=== PATIENT | male | born 1935 ===

== ENCOUNTER 2017-01-12 07:54 | Day surgery (SDC) | payer MEDICARE, OTHER ==
[2017-01-05 13:46] VITALS: BMI 33.4
[2017-01-12] MEDS ORDERED: Sodium Chloride 0.9% 1,000 ML IV SCH (09:15)
[2017-01-12] MEDS ORDERED: Propofol 10 mg/ml Inj (20 ML) ONE ×2 (09:23→09:44)
[2017-01-12 11:02] VITALS: BP 123/72; PULSE 61; RESP 16; TEMP 97.6; O2SAT 98
== END 2017-01-12 11:27 | disposition home or self-care (01) ==
LOC: ENDO 07:54
PROVIDERS: ATTEND Specialist
DX: Z12.11 Encounter for screening for malignant neoplasm of colon (principal); K57.30 Diverticulosis of large intestine without perforation or abscess without bleeding; K64.8 Other hemorrhoids; I25.10 Atherosclerotic heart disease of native coronary artery without angina pectoris; Z85.46 Personal history of malignant neoplasm of prostate
CPT/HCPCS: 45378; J2704; J7040

== ENCOUNTER 2017-05-11 08:58 | Day surgery (SDC) | payer MEDICARE, OTHER ==
[2017-05-04 10:53] VITALS: BMI 32.5
[2017-05-11] MEDS ORDERED: Propofol 10 mg/ml Inj (20 ML) ONE (09:56)
[2017-05-11] MEDS ORDERED: Etomidate 20 mg/10ml Inj IV ONE (09:56)
[2017-05-11] MEDS ORDERED: Sodium Chloride 0.9% 1,000 ML IV SCH (10:30)
--- NOTE | 2017-05-11 12:31 | CARD ---
APPROVED REPORT EKG Measurement Heart [id number] <Conclusion> Sinus bradycardia Nonspecific T wave abnormality Abnormal ECG
[2017-05-11 13:04] VITALS: O2SAT 98
[2017-05-11 13:20] VITALS: BP 155/66; PULSE 56; RESP 18; TEMP 97.9
== END 2017-05-11 13:56 | disposition home or self-care (01) ==
LOC: ENDO 08:58
PROVIDERS: ATTEND Specialist
DX: K29.50 Unspecified chronic gastritis without bleeding (principal); K44.9 Diaphragmatic hernia without obstruction or gangrene; K31.9 Disease of stomach and duodenum, unspecified

== ENCOUNTER 2017-05-30 07:36 | Day surgery (SDC) | payer MEDICARE, OTHER ==
[2017-05-04 10:53] VITALS: BMI 32.5
[2017-05-30] MEDS ORDERED: Bupivacaine 0.5% Inj(30mL) ONE (09:21)
[2017-05-30] MEDS ORDERED: Propofol 10 mg/ml Inj (20 ML) ONE (09:41)
[2017-05-30] MEDS ORDERED: Midazolam 2 MG/2 ML VIAL ONE ×2 (09:42→09:59)
[2017-05-30] MEDS ORDERED: Lidocaine 1% Inj (20ml) ONE (09:53)
[2017-05-30] MEDS ORDERED: Lactated Ringer's 1,000 ML IV SCH (11:05)
[2017-05-30] MEDS ORDERED: HYDROmorphone 0.5 mg/0.5 ml ISec IVP PRN (11:05)
--- NOTE | 2017-05-30 11:16 | PCM.SURG1 ---
Surgeon's Initial Post Op Note - Surgeon's Notes Surgeon: Jasvir Field Sales Manager: Meek Chavez Pre-Operative Diagnosis: left enlarged inguinal lymph node Operative Findings: enlarged left inguinal lymph node Post-Operative Diagnosis: same Operation Performed: open left inguinal lymph node biospy Specimen/Specimens Removed: left inguinal lymph node Estimated Blood Loss: EBL {In ML}: 15 Post-Op Condition: Good Date of Surgery/Procedure: 05/30/17 Time of Surgery/Procedure: 10:15
[2017-05-30 11:54] VITALS: RESP 18; TEMP 97.7
[2017-05-30 12:28] VITALS: O2SAT 98
[2017-05-30 14:45] VITALS: BP 131/70; PULSE 51
--- NOTE | 2017-05-31 08:08 | OP ---
PROCEDURE DATE: 05/30/2017 The patient seen in the office on the table. The patient was noted to have diffuse adenopathy mostly involving left lower quadrant and groin. The patient is status post prostate resection with radiation. DESCRIPTION OF PROCEDURE: In the operating room, the patient was identified by name, name of the procedure, laterality, my trvea, the consent, name, number, wrist band, and his date. After the successful time-out, the patient was noted to have a large mass in the left inguinal area. Ultrasound was done which mapped it out very nicely. The hardest one was identified and an incision was made over it using IV sedation and Marcaine-Xylocaine mix skin and subcutaneous tissues below the initial fascia. The mass was then dissected circumferentially was 3-4 cm in length and 2-3 cm in width. This was dissected down to another mass. It was continuous series of lymph nodes. This was then amputated, removing a very large lymph node. Hemostasis was achieved with the cautery and pressure. I personally took this to the pathologist who eventually did a touch prep and a frozen section showing spindle cells. "No obvious lymphoma or cancer." The other half of the specimen was sent for cultures, aerobic and anaerobic, fungus and TB. The wound was closed with multiple layers of Vicryl followed by subcuticular PDS and Dermabond. The patient was taken to the recovery room in good condition after sponge and needle count was claimed correct. Santana Tay MD
[2017-06-02 12:37] LABS: NON-RESPIRATORY SOURCE LT INGUINAL LYMPHNOD
== END 2017-05-30 14:36 | disposition home or self-care (01) ==
LOC: SDS 07:36
PROVIDERS: ATTEND Surgery
DX: R59.0 Localized enlarged lymph nodes (principal); I10 Essential (primary) hypertension
CPT/HCPCS: 38500; 87015; 87070; 87075; 87101; 87116; 87181; 87206; 87556; 88305; J0690; J1170; J1885; J2250; J2704; J3010; J7120 ×2

== ENCOUNTER 2017-08-11 07:02 | Inpatient (IN) | payer MEDICARE, OTHER ==
[2017-05-04 10:53] VITALS: BMI 32.5
[2017-08-11] MEDS ORDERED: Bupivacaine 0.5% Inj(30mL) ONE (10:01)
[2017-08-11] MEDS ORDERED: Succinylcholine 200 mg/10 ml Inj IV ONE (10:15)
[2017-08-11] MEDS ORDERED: Midazolam 2 MG/2 ML VIAL ONE (10:15)
[2017-08-11] MEDS ORDERED: Rocuronium 10 mg/ml (5 ml) ONE (10:15)
[2017-08-11] MEDS ORDERED: Etomidate 20 mg/10ml Inj IV ONE (10:15)
[2017-08-11] MEDS ORDERED: Phenylephrine 10 mg/ml Inj ONE (10:50)
[2017-08-11] MEDS ORDERED: Neostigmine Methylsulfate 3mg/3ml Syringe IV ONE (12:46)
[2017-08-11] MEDS ORDERED: Morphine 4 mg/ml ISec IVP PRN (13:08)
[2017-08-11] MEDS ORDERED: Lactated Ringer's 1,000 ML IV SCH (13:15)
[2017-08-11] MEDS ORDERED: Oxycodone/Acetaminophen 5/325 mg Tab PO PRN ×2 (13:20→13:25)
--- NOTE | 2017-08-11 13:52 | PCM.SURG1 ---
Surgeon's Initial Post Op Note - Surgeon's Notes Surgeon: Dr. Tay Dolphin Trainer: Dr. Alas PGY-3, Dr. Zamarripa PGY-2, Judd Pineda MS4 Type of Anesthesia: General Endo Anesthesia Administered By: Dr. Hopkins Pre-Operative Diagnosis: Left groin mass Operative Findings: See operative report Post-Operative Diagnosis: same Operation Performed: Radical Dissection of Left groin mass with excision of Adherent Spermatic cord Specimen/Specimens Removed: left groin mass, spermatic cord Estimated Blood Loss: EBL {In ML}: 350 Blood Products Given: N/A Drains Used: Jcarlos (x 2) Post-Op Condition: Good Date of Surgery/Procedure: 08/11/17 Time of Surgery/Procedure: 13:53
[2017-08-11] MEDS: ceFAZolin 1 gm in NS 1 GM/100 ML BAG IVPB SCH ×2 (16:02→21:44)
[2017-08-11] MEDS: Lactated Ringer's 1,000 ML IV SCH (16:03)
[2017-08-11] MEDS ORDERED: Influenza Vaccine 60 mcg/0.5 mL SYR (4YR UP) IM ONE (16:13)
[2017-08-11] MEDS ORDERED: Pneumococcal 23-Valent Vaccine IM ONE (16:13)
[2017-08-12] MEDS: Lactated Ringer's 1,000 ML IV SCH ×2 (05:59→16:51)
[2017-08-12] MEDS: ceFAZolin 1 gm in NS 1 GM/100 ML BAG IVPB SCH ×3 (06:00→21:14)
[2017-08-12 06:59] LABS: BASO # 0.01 K/mm3 (0.0-2.0); BASO % 0.1 % (0.0-3.0); EOS % 0.4 % (1.5-5.0); GRAN # 5.8 (1.4-6.5); GRAN % 72.4 % (50.0-68.0); HEMATOCRIT 31.3 % (42.0-52.0); LYMPH % 12.8 % (22.0-35.0); MEAN CELL VOLUME 70.7 fl (80.0-105.0); MEAN CORPUSCULAR HEMOGLOBIN 20.5 pg (25.0-35.0); MEAN CORPUSCULAR HGB CONC 29.1 g/dl (31.0-37.0); MEAN PLATELET VOLUME 10.4 fl (7.0-11.0); MONO # 1.1 (0.1-0.6); MONO % 14.3 % (1.0-6.0); RED CELL DISTRIBUTION WIDTH 19.2 % (11.5-14.5)
--- NOTE | 2017-08-12 07:58 | CP.PCM.PN ---
Subjective - Date & Time of Evaluation Date of Evaluation: 08/12/17 Time of Evaluation: 07:55 - Subjective Subjective: Surgery Progress Note for Dr. Tay Pt seen and examined at bedside. No acute overnight events. Pt states that pain is well controlled. Pt is tolerating diet. Pt denied CP, SOB, nausea, vomiting, diarrhea, abdominal pain, fever, chills. Objective - Vital Signs/Intake and Output Vital Signs (last 24 hours): Temp Pulse Resp BP Pulse Ox 98.5 F 67 18 157/78 H 95 08/11/17 16:00 08/11/17 16:00 08/11/17 16:00 08/11/17 16:00 08/11/17 16:00 Intake and Output: 08/12/17 08/12/17 06:59 18:59 Intake Total 1690 Output Total 1460 Balance 230 - Medications Medications: Current Medications Amlodipine Besylate (Norvasc) 5 mg PO DAILY [facility] Enoxaparin Sodium (Lovenox) 40 mg SC DAILY [facility] PRN Reason: Protocol Fentanyl (Fentanyl) 25 mcg IV Q5M PRN PRN Reason: Pain, moderate (4-7) Lactated Ringer's (Lactated Ringer's) 1,000 mls @ 75 mls/hr IV .[id number] [facility] Last Admin: 08/12/17 05:59 Dose: 75 mls/hr Cefazolin Sodium (Ancef 1gm In Ns) 1 gm in 100 mls @ 100 mls/hr IVPB Q8 [facility] Last Admin: 08/12/17 06:00 Dose: 100 mls/hr Ketorolac Tromethamine (Toradol) 30 mg IM ONCE PRN PRN Reason: Pain, moderate (4-7) Metoprolol Tartrate (Lopressor) 50 mg PO DAILY [facility] Morphine Sulfate (Morphine) 4 mg IVP Q4H PRN PRN Reason: Pain, moderate (4-7) Ondansetron HCl (Zofran Inj) 4 mg IVP ONCE PRN PRN Reason: Nausea/Vomiting Oxycodone/Acetaminophen (Percocet 5/325 Mg Tab) 1 tab PO Q4H PRN PRN Reason: Pain, Mild (1-3) Stop: 08/14/17 13:26 Pantoprazole Sodium (Protonix Ec Tab) 40 mg PO DAILY [facility] - Labs Labs: 08/12/17 06:10 - Constitutional Appears: No Acute Distress - Head Exam Head Exam: ATRAUMATIC, NORMOCEPHALIC - Eye Exam Eye Exam: Normal appearance - ENT Exam ENT Exam: Mucous Membranes Moist - Neck Exam Neck Exam: Full ROM - Respiratory Exam Respiratory Exam: Clear to Ausculation Bilateral. absent: Rales, Rhonchi, Wheezes - Cardiovascular Exam Cardiovascular Exam: RRR. absent: Gallop, Rubs, Murmur - GI/Abdominal Exam GI & Abdominal Exam: Distended, Soft. absent: Guarding, Tenderness, Mass, Rebound - Extremities Exam Additional comments: bandages c/d/i left groin, kahlil drain x2 with SS output: #1-180 cc, #2-30 cc - Neurological Exam Neurological Exam: Alert, Awake, Oriented x3 Assessment and Plan - Assessment and Plan (Free Text) Assessment: 81 yo M with presented with left groin mass is POD#1 for Radical Dissection of Left groin mass with excision of Adherent Spermatic cord Plan: - Tmax 100.4 over 24 hrs, no leukocytosis - Hgb 9.1, possibly due to post op/dilutional/Fe def anemia - Remove deeper drain today, cont to monitor superficial drain - D/C swartz - Cont IV abx, pain, nausea control - IVF DW Dr. Jasvir Bryan, PGY1
[2017-08-12 08:24] VITALS: RESP 20
[2017-08-12 08:35] LABS: BLOOD UREA NITROGEN 11 mg/dL (7-21); CARBON DIOXIDE 28 mmol/L (21-33); CHLORIDE 106 mmol/L (98-107); GFR AFRICAN-AMERICAN > 60; GLUCOSE,RANDOM 92 mg/dL (70-110); POTASSIUM 4.1 mmol/L (3.6-5.0); SODIUM 139 mmol/L (132-148)
[2017-08-12] MEDS: Pantoprazole 40 mg EC Tab PO SCH (08:59)
[2017-08-12] MEDS: Enoxaparin 40 mg Syringe SC SCH (09:00)
[2017-08-13] MEDS: ceFAZolin 1 gm in NS 1 GM/100 ML BAG IVPB SCH ×3 (05:14→22:36)
[2017-08-13 07:00] LABS: MEAN CELL VOLUME 70.8 fl (80.0-105.0); MEAN CORPUSCULAR HEMOGLOBIN 20.5 pg (25.0-35.0); MEAN PLATELET VOLUME 10.2 fl (7.0-11.0); RED CELL DISTRIBUTION WIDTH 19.4 % (11.5-14.5); WHITE BLOOD COUNT 6.8 10^3/ul (4.5-11.0)
[2017-08-13 08:02] LABS: BLOOD UREA NITROGEN 9 mg/dL (7-21); CALCIUM 9.2 mg/dL (8.4-10.5); CARBON DIOXIDE 29 mmol/L (21-33); CHLORIDE 106 mmol/L (98-107); GFR AFRICAN-AMERICAN > 60; GLUCOSE,RANDOM 98 mg/dL (70-110); POTASSIUM 3.7 mmol/L (3.6-5.0); SODIUM 139 mmol/L (132-148)
[2017-08-13] MEDS: Lactated Ringer's 1,000 ML IV SCH (08:16)
[2017-08-13] MEDS: Enoxaparin 40 mg Syringe SC SCH (09:27)
[2017-08-13] MEDS: Pantoprazole 40 mg EC Tab PO SCH (09:28)
--- NOTE | 2017-08-13 12:45 | CP.PCM.PN ---
Subjective - Date & Time of Evaluation Date of Evaluation: 08/13/17 Time of Evaluation: 12:42 - Subjective Subjective: Surgery Pt s&e. NAEON. Denies f/c/n/v/d/cp/sob. + AMB. + VOID. + tolerating diet. Pain controlled. Drain education. Objective - Vital Signs/Intake and Output Vital Signs (last 24 hours): Temp Pulse Resp BP Pulse Ox 98.8 F 78 20 134/71 98 08/13/17 08:01 08/13/17 09:27 08/13/17 08:01 08/13/17 09:27 08/13/17 08:01 Intake and Output: 08/13/17 08/13/17 06:59 18:59 Intake Total 1800 Output Total 1331 Balance 469 - Medications Medications: Current Medications Acetaminophen (Tylenol 325mg Tab) 650 mg PO Q4H PRN PRN Reason: Fever >100.4 F Amlodipine Besylate (Norvasc) 5 mg PO DAILY [facility] Last Admin: 08/13/17 09:27 Dose: 5 mg Enoxaparin Sodium (Lovenox) 40 mg SC DAILY [facility] PRN Reason: Protocol Last Admin: 08/13/17 09:27 Dose: 40 mg Fentanyl (Fentanyl) 25 mcg IV Q5M PRN PRN Reason: Pain, moderate (4-7) Lactated Ringer's (Lactated Ringer's) 1,000 mls @ 75 mls/hr IV .[id number] [facility] Last Admin: 08/13/17 08:16 Dose: Not Given Cefazolin Sodium (Ancef 1gm In Ns) 1 gm in 100 mls @ 100 mls/hr IVPB Q8 [facility] Last Admin: 08/13/17 05:14 Dose: 100 mls/hr Ketorolac Tromethamine (Toradol) 30 mg IM ONCE PRN PRN Reason: Pain, moderate (4-7) Metoprolol Tartrate (Lopressor) 50 mg PO DAILY [facility] Last Admin: 08/13/17 09:27 Dose: 50 mg Morphine Sulfate (Morphine) 4 mg IVP Q4H PRN PRN Reason: Pain, moderate (4-7) Ondansetron HCl (Zofran Inj) 4 mg IVP ONCE PRN PRN Reason: Nausea/Vomiting Oxycodone/Acetaminophen (Percocet 5/325 Mg Tab) 1 tab PO Q4H PRN PRN Reason: Pain, Mild (1-3) Stop: 08/14/17 13:26 Last Admin: 08/12/17 16:50 Dose: 1 tab Pantoprazole Sodium (Protonix Ec Tab) 40 mg PO DAILY [facility] Last Admin: 08/13/17 09:28 Dose: 40 mg - Labs Labs: 08/13/17 06:00 08/13/17 06:00 - Constitutional Appears: No Acute Distress - Head Exam Head Exam: ATRAUMATIC, NORMAL INSPECTION, NORMOCEPHALIC - Eye Exam Eye Exam: EOMI, Normal appearance, PERRL Pupil Exam: NORMAL ACCOMODATION, PERRL - ENT Exam ENT Exam: Mucous Membranes Moist, Normal Exam - Neck Exam Neck Exam: Full ROM, Normal Inspection. absent: Lymphadenopathy - Respiratory Exam Respiratory Exam: Clear to Ausculation Bilateral, NORMAL BREATHING PATTERN - Cardiovascular Exam Cardiovascular Exam: REGULAR RHYTHM, +S1, +S2. absent: Murmur - GI/Abdominal Exam GI & Abdominal Exam: Soft, Normal Bowel Sounds. absent: Distended, Tenderness - Exam Exam: absent: NORMAL INSPECTION, Scrotal Swelling, Testicular Tenderness, Uretheral Discharge, Bladder Distension External exam: absent: Ecchymosis, Swelling - Extremities Exam Extremities Exam: Full ROM, Normal Capillary Refill Additional comments: incision C/D/I. Drain in place. L groin area - Back Exam Back Exam: NORMAL INSPECTION - Neurological Exam Neurological Exam: Alert, Awake, CN II-XII Intact, Normal Gait, Oriented x3 - Psychiatric Exam Psychiatric exam: Normal Affect, Normal Mood - Skin Skin Exam: Dry, Intact, Normal Color, Warm Assessment and Plan - Assessment and Plan (Free Text) Assessment: POD 2 s/p L groin mass excision. -DC tomorrow -Drain output -f/u path DW Dr. Tay
[2017-08-14] MEDS: Lactated Ringer's 1,000 ML IV SCH ×2 (00:45→05:39)
[2017-08-14] MEDS: ceFAZolin 1 gm in NS 1 GM/100 ML BAG IVPB SCH ×3 (05:40→21:02)
[2017-08-14 06:45] LABS: BLOOD UREA NITROGEN 9 mg/dL (7-21); CALCIUM 9.7 mg/dL (8.4-10.5); CARBON DIOXIDE 30 mmol/L (21-33); CHLORIDE 107 mmol/L (98-107); GFR AFRICAN-AMERICAN > 60; GLUCOSE,RANDOM 107 mg/dL (70-110); POTASSIUM 3.9 mmol/L (3.6-5.0); SODIUM 142 mmol/L (132-148)
[2017-08-14 07:23] LABS: HEMATOCRIT 31.9 % (42.0-52.0); MEAN CELL VOLUME 70.9 fl (80.0-105.0); MEAN CORPUSCULAR HEMOGLOBIN 20.4 pg (25.0-35.0); MEAN CORPUSCULAR HGB CONC 28.8 g/dl (31.0-37.0); MEAN PLATELET VOLUME 10.8 fl (7.0-11.0); RED CELL DISTRIBUTION WIDTH 19.5 % (11.5-14.5); WHITE BLOOD COUNT 5.3 10^3/ul (4.5-11.0)
[2017-08-14] MEDS: Enoxaparin 40 mg Syringe SC SCH (10:17)
[2017-08-14] MEDS: Pantoprazole 40 mg EC Tab PO SCH (10:17)
--- NOTE | 2017-08-14 11:51 | CP.PCM.PN ---
Subjective - Date & Time of Evaluation Date of Evaluation: 08/14/17 Time of Evaluation: 07:00 - Subjective Subjective: Surgery: Dr. Tay Pt seen and examined. No acute overnight events. States he's feeling better this morning but admits to some pain around the incision. He's tolerating his diet and getting out of bed to chair with help. Denies N/V, F/C. Objective - Vital Signs/Intake and Output Vital Signs (last 24 hours): Temp Pulse Resp BP Pulse Ox 97.7 F 90 20 143/82 98 08/14/17 08:01 08/14/17 10:17 08/14/17 08:01 08/14/17 10:17 08/14/17 08:01 Intake and Output: 08/14/17 08/14/17 06:59 18:59 Intake Total 2050 Output Total 1438 25 Balance 612 -25 - Medications Medications: Current Medications Acetaminophen (Tylenol 325mg Tab) 650 mg PO Q4H PRN PRN Reason: Fever >100.4 F Amlodipine Besylate (Norvasc) 5 mg PO DAILY [facility] Last Admin: 08/14/17 10:16 Dose: 5 mg Enoxaparin Sodium (Lovenox) 40 mg SC DAILY [facility] PRN Reason: Protocol Last Admin: 08/14/17 10:17 Dose: 40 mg Fentanyl (Fentanyl) 25 mcg IV Q5M PRN PRN Reason: Pain, moderate (4-7) Lactated Ringer's (Lactated Ringer's) 1,000 mls @ 75 mls/hr IV .[id number] [facility] Last Admin: 08/14/17 05:39 Dose: 75 mls/hr Cefazolin Sodium (Ancef 1gm In Ns) 1 gm in 100 mls @ 100 mls/hr IVPB Q8 [facility] Last Admin: 08/14/17 05:40 Dose: 100 mls/hr Ketorolac Tromethamine (Toradol) 30 mg IM ONCE PRN PRN Reason: Pain, moderate (4-7) Metoprolol Tartrate (Lopressor) 50 mg PO DAILY [facility] Last Admin: 08/14/17 10:17 Dose: 50 mg Morphine Sulfate (Morphine) 4 mg IVP Q4H PRN PRN Reason: Pain, moderate (4-7) Ondansetron HCl (Zofran Inj) 4 mg IVP ONCE PRN PRN Reason: Nausea/Vomiting Oxycodone/Acetaminophen (Percocet 5/325 Mg Tab) 1 tab PO Q4H PRN PRN Reason: Pain, Mild (1-3) Stop: 08/14/17 13:26 Last Admin: 08/12/17 16:50 Dose: 1 tab Pantoprazole Sodium (Protonix Ec Tab) 40 mg PO DAILY [facility] Last Admin: 08/14/17 10:17 Dose: 40 mg - Labs Labs: 08/14/17 05:30 08/14/17 05:30 - Constitutional Appears: Well, No Acute Distress - Head Exam Head Exam: ATRAUMATIC, NORMOCEPHALIC - ENT Exam ENT Exam: Mucous Membranes Moist - Respiratory Exam Respiratory Exam: NORMAL BREATHING PATTERN - Cardiovascular Exam Cardiovascular Exam: RRR - GI/Abdominal Exam GI & Abdominal Exam: Soft. absent: Distended, Tenderness - Extremities Exam Additional comments: Left groin with jayne in place, C/D/I. Jcarlos drain with 80cc of serosang drainage over last 12 hrs. - Neurological Exam Neurological Exam: Alert, Awake, Oriented x3 - Skin Skin Exam: Dry, Warm Assessment and Plan - Assessment and Plan (Free Text) Assessment: 81M s/p radical dissection of L groin mass; POD#3 Plan: - DC IV pain meds - PT eval - plan to DC tomorrow - d/w Dr. Jasvir Alas, PGY-3 Surgery
[2017-08-15] MEDS: ceFAZolin 1 gm in NS 1 GM/100 ML BAG IVPB SCH ×2 (05:18→14:59)
[2017-08-15 06:49] LABS: HEMATOCRIT 33.3 % (42.0-52.0); MEAN CELL VOLUME 70.7 fl (80.0-105.0); MEAN CORPUSCULAR HEMOGLOBIN 20.4 pg (25.0-35.0); MEAN CORPUSCULAR HGB CONC 28.8 g/dl (31.0-37.0); MEAN PLATELET VOLUME 10.5 fl (7.0-11.0); RED CELL DISTRIBUTION WIDTH 19.7 % (11.5-14.5); WHITE BLOOD COUNT 5.7 10^3/ul (4.5-11.0)
[2017-08-15 07:20] LABS: BLOOD UREA NITROGEN 11 mg/dL (7-21); CALCIUM 9.9 mg/dL (8.4-10.5); CARBON DIOXIDE 28 mmol/L (21-33); CHLORIDE 107 mmol/L (98-107); GFR AFRICAN-AMERICAN > 60; GLUCOSE,RANDOM 121 mg/dL (70-110); POTASSIUM 4.2 mmol/L (3.6-5.0); SODIUM 141 mmol/L (132-148)
[2017-08-15 07:58] VITALS: BP 134/76; PULSE 72; TEMP 98.6; O2SAT 95
--- NOTE | 2017-08-15 08:27 | CP.PCM.DIS ---
Provider - Provider Date of Admission: 08/11/17 15:15 Attending physician: Santana Tay MD Primary care physician: Mary Valera MD Consults: Medicine: Lacey Time Spent in preparation of Discharge (in minutes): 45 Hospital Course - Lab Results Lab Results: Most Recent Lab Values WBC 5.7 10^3/ul (4.5-11.0) 08/15/17 06:20 RBC 4.71 10^6/uL (3.5-6.1) 08/15/17 06:20 Hgb 9.6 g/dL (14.0-18.0) L 08/15/17 06:20 Hct 33.3 % (42.0-52.0) L 08/15/17 06:20 MCV 70.7 fl (80.0-105.0) L 08/15/17 06:20 MCH 20.4 pg (25.0-35.0) L 08/15/17 06:20 MCHC 28.8 g/dl (31.0-37.0) L 08/15/17 06:20 RDW 19.7 % (11.5-14.5) H 08/15/17 06:20 Plt Count 308 10^3/uL (120.0-450.0) 08/15/17 06:20 MPV 10.5 fl (7.0-11.0) 08/15/17 06:20 Gran % 72.4 % (50.0-68.0) H 08/12/17 06:10 Lymph % (Auto) 12.8 % (22.0-35.0) L 08/12/17 06:10 [place] % (Auto) 14.3 % (1.0-6.0) H 08/12/17 06:10 Eos % (Auto) 0.4 % (1.5-5.0) L 08/12/17 06:10 Baso % (Auto) 0.1 % (0.0-3.0) 08/12/17 06:10 Gran # 5.80 (1.4-6.5) 08/12/17 06:10 Lymph # 1.0 (1.2-3.4) L 08/12/17 06:10 [place] # 1.1 (0.1-0.6) H 08/12/17 06:10 Eos # 0.0 (0.0-0.7) 08/12/17 06:10 Baso # 0.01 K/mm3 (0.0-2.0) 08/12/17 06:10 Sodium 141 mmol/L (132-148) 08/15/17 06:20 Potassium 4.2 mmol/L (3.6-5.0) 08/15/17 06:20 Chloride 107 mmol/L (98-107) 08/15/17 06:20 Carbon Dioxide 28 mmol/L (21-33) 08/15/17 06:20 Anion Gap 11 (10-20) 08/15/17 06:20 BUN 11 mg/dL (7-21) 08/15/17 06:20 Creatinine 0.7 mg/dl (0.8-1.5) L 08/15/17 06:20 Est GFR ( Amer) > 60 08/15/17 06:20 Est GFR (Non-Af Amer) > 60 08/15/17 06:20 Random Glucose 121 mg/dL (70-110) H 08/15/17 06:20 Calcium 9.9 mg/dL (8.4-10.5) 08/15/17 06:20 Blood Type O POSITIVE 08/11/17 07:32 Blood Type Confirm O POSITIVE 08/11/17 08:45 Antibody Screen Negative 08/11/17 07:32 Crossmatch See Detail 08/11/17 07:32 BBK History Checked No verified bt 08/11/17 07:32 - Hospital Course Hospital Course: Diagnosis on Admission - Left Groin Mass Diagnosis on Discharge - Left Groin Mass s/p excision of mass and radical dissection Pt is a 81 yo M with PMH of HTN, ANA, PVD, arthritis, DJD, anemia, GERD came to [facility] as outpatient for surgical removal of a left groin mass. 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 Pt was taken to OR for radical dissection of left groin mass with excision of adherent spermatic cord. See operative report for findings. 2 jcarlos drains were placed. During hospital course, dressings were changed regularly. The deeper jcarlos drain was removed as output was minimal. Pain medications were tapered and diet was advanced as tolerated by patient. Today, patient was seen and examined at bedside. No acute overnight events. The remaining jcarlos drain had 150 cc SS output over 24 hrs. The patient will be discharged with the jcarlos drain. Patient and family were instructed on drain management and to document daily output.. Patient was instructed to follow up with Dr. Tay in clinic for pathology report follow up and routine post op care. Discharge Medications: Resume home meds Discharge Exam - Head Exam Head Exam: ATRAUMATIC, NORMOCEPHALIC - Eye Exam Eye Exam: Normal appearance - Respiratory Exam Respiratory Exam: NORMAL BREATHING PATTERN. absent: Accessory Muscle Use, Respiratory Distress - Cardiovascular Exam Cardiovascular Exam: RRR. absent: Gallop, Rubs, Systolic Murmur - GI/Abdominal Exam GI & Abdominal Exam: Soft. absent: Distended, Guarding, Rebound, Tenderness - Extremities Exam Additional comments: incision line on left groin c/d/i, jayne in place, dressings changed, Jcarlos drain with 150 cc SS output over 24 hrs. - Back Exam Back exam: NORMAL INSPECTION - Neurological Exam Neurological exam: Alert, Oriented x3 - Skin Skin Exam: Dry, Intact, Normal Color, Warm Discharge Plan - Follow Up Plan Condition: GOOD Disposition: HOME/ ROUTINE Instructions: Pneumococcal Vaccine for Adults (GEN), Yoshi-Yeung Drain Care ( DC), Diabetes Mellitus Type 2 in Adults (GEN), Influenza (GEN), Basic Carbohydrate Counting (GEN), Acute Wound Care (GEN), Fall Prevention (GEN) Additional Instructions: follow up at Dr. Tay's office for pathology report and jayne removal in 1- 2 weeks Drain management : Empty drain and measure daily. Can take Tylenol as needed for pain, per instructions on bottle. Referrals: Mary Valera MD [Primary Care Provider] - Santana Tay MD [Staff Provider] -
[2017-08-15] MEDS: Enoxaparin 40 mg Syringe SC SCH (11:57)
[2017-08-15] MEDS: Pantoprazole 40 mg EC Tab PO SCH (11:58)
--- NOTE | 2017-08-19 10:29 | OP ---
PROCEDURE DATE: PREOPERATIVE DIAGNOSIS: Low-grade sarcoma of the left groin. POSTOPERATIVE DIAGNOSIS: Low-grade sarcoma of the left groin. OPERATION PERFORMED: Radical groin dissection. DESCRIPTION OF PROCEDURE: In the operating room, the patient was identified by the name, name of the procedure, laterality, my treva. The patient had been biopsied for showing a low-grade sarcoma. CAT scan showed it to be resectable. A large groin incision was made, going on the other side of the palpable tumor. Flaps were raised superiorly and inferiorly going wide to the lesion. Dissection then went down to the abdominal wall and approaching the lesion, cystic lesion was identified which is probably old biopsy site. This was from the abdominal wall by sharp, blunt and cautery dissection and the edge of the abdominal wall was seen. Following this down, sharp, blunt and cautery dissection was used to separate it. Going inferiorly, dissection was performed. Tumor itself was very hard. We were able to lift this up by circumferential dissection . Going medially, the tumor was very close to the base of the scrotum. This was circumscribed and we were able to lift it up identifying the cord. The cord was taken as it was densely involved in the tumor noting that the patient had a prior orchiectomy done before epididymitis. The entire tumor was then circumferentially dissected with lymph nodes peeling it off the vessels. The tumor was completely removed. Hemostasis was achieved. The area was closed over 2 large drains. The edges were approximated with Vicryl and the skin was closed with jayne. Pressure dressing was applied. The patient was taken to recovery room in good condition after the sponge and needle counts were declared correct. Santana Tay MD
== END 2017-08-15 16:37 | disposition home health service (06) | DRG 517 ==
LOC: SDS 07:02 → 5RNO 15:15
PROVIDERS: ADMIT Surgery; ATTEND Surgery
PROC: 07BJ0ZZ Excision of Left Inguinal Lymphatic, Open Approach (ICD-10-PCS; 2017-08-11)
PROC: 0VT Male Reproductive System, Resection (ICD-10-PCS; principal; 2017-08-11 10:30)
DX: C49.5 Malignant neoplasm of connective and soft tissue of pelvis (principal); R50.9 Fever, unspecified; D50.9 Iron deficiency anemia, unspecified; G47.33 Obstructive sleep apnea (adult) (pediatric); I10 Essential (primary) hypertension; I73.9 Peripheral vascular disease, unspecified; K21.9 Gastro-esophageal reflux disease without esophagitis; M19.90 Unspecified osteoarthritis, unspecified site